=== PATIENT | female | born 1995 | race Caucasian/White ===

== ENCOUNTER 2022-07-22 03:27 | Emergency (ER) | payer BC ==
[~2022-07-22] VITALS: Ht 175.3 cm; Wt 90.7 kg
--- NOTE | 2022-07-22 03:45 | NUR ---
seen and examined by Dr. Matthew, calling non emergency [employer] at this time.
[2022-07-22] MEDS ORDERED: ONDA4TAB5 PO (04:01)
--- NOTE | 2022-07-22 04:08 | NUR ---
remains on hold with [employer] non emergency.
[2022-07-22 04:22] VITALS: BP 112/80
--- NOTE | 2022-07-22 04:37 | NUR ---
spoke with [employer] non er dispatch, informed pt. information and address.
== END 2022-07-22 04:23 | disposition home or self-care (01) ==
LOC: ER 03:27
DX: S00.03XA Contusion of scalp, initial encounter (principal); Y00.XXXA Assault by blunt object, initial encounter; Y92.89 Other specified places as the place of occurrence of the external cause
CPT/HCPCS: A4663